=== PATIENT | female | born 1975 | race Two or more races ===

== ENCOUNTER 2019-02-04 09:30 | Emergency (ER) | payer SELFPAY ==
[~2019-02-04] VITALS: Ht 157.5 cm; Wt 90.7 kg
[2019-02-04 09:37] VITALS: BP 110/69
[2019-02-04] MEDS ORDERED: HYDROcodone-ACET 7.5/325MG TAB PO ONE (10:00)
== END 2019-02-04 10:14 | disposition home or self-care (01) ==
LOC: ER 09:30
DX: K04.7 Periapical abscess without sinus (principal); G89.29 Other chronic pain; M54.5 Low back pain; F17.210 Nicotine dependence, cigarettes, uncomplicated